=== PATIENT | male | born 1970 | race Caucasian/White ===

== ENCOUNTER 2021-06-27 02:55 | Outpatient (CLI) | payer OTHER, SELFPAY ==
[2021-06-27 08:11] LABS: Bilirubin Negative (Negative); Blood Small (Negative); Clarity Clear (Clear); Glucose Negative (Negative); Ketones Negative (Negative); Leukocyte Esterase Negative (Negative); Nitrite Negative (Negative); Urobilinogen 0.2 EU/dL (Up TO 0.2); pH 6.5 (5-8)
[2021-06-27 08:24] LABS: Bacteria Negative HPF (Negative); C & S Indicated? No; Casts Negative LPF (Negative); Crystals Negative HPF (Negative); Epithelial Cells Rare HPF (Negative); Mucus Negative (Negative); RBC 0-2 HPF (0-2); WBC Negative HPF (0-5)
[2021-06-27 09:33] LABS: ALT 39 U/L (16-63); AST 18 U/L (15-37); Albumin 4.5 g/dL (3.4-5.0); Alkaline Phosphatase 87 U/L (46-116); BUN 11 mg/dL (7-18); Bilirubin, Total 0.6 mg/dL (0.2-1.0); CREATININE 1.2 mg/dL (0.70-1.30); Calcium 9.3 mg/dL (8.5-10.1); Calculated LDL 74 mg/dL (<100); Chloride 102 mmol/L (98-107); Cholesterol 160 mg/dL (<200); Glucose 98 mg/dL (74-106); HDL Cholesterol 54 mg/dL (40-60); Potassium 4.2 mmol/L (3.5-5.1); Sodium 141 mmol/L (136-145); Total Protein 7.6 g/dL (6.4-8.2); Triglyceride 161 mg/dL (<150)
[2021-06-27 18:53] LABS: PSA, Screening 0.6 ng/mL (0.0-3.5)
== END 2021-06-27 02:56 | disposition home or self-care (01) ==
LOC: LBO 02:55
PROVIDERS: Visit Provider Nurse Practitioner Family
DX: E78.5 Hyperlipidemia, unspecified (principal); R39.15 Urgency of urination; Z13.1 Encounter for screening for diabetes mellitus; Z12.5 Encounter for screening for malignant neoplasm of prostate
CPT/HCPCS: 36415; 80053; 80061; 84153; 81003; 81015

== ENCOUNTER 2022-06-15 01:38 | Outpatient (CLI) | payer OTHER, SELFPAY ==
[2022-06-15 09:39] LABS: ALT 52 U/L (16-63); AST 25 U/L (15-37); Albumin 4.3 g/dL (3.4-5.0); Alkaline Phosphatase 79 U/L (46-116); Anion Gap 3.7 mmol/L (3-11); BUN 16 mg/dL (7-18); Bilirubin, Total 0.5 mg/dL (0.2-1.0); CO2 31.3 mmol/L (21.0-32.0); CREATININE 1.3 mg/dL (0.70-1.30); Calcium 9.3 mg/dL (8.5-10.1); Chloride 102 mmol/L (98-107); Estimated GFR 66.51 (mL/min/1.73m2); Glucose 101 mg/dL (74-106); Potassium 4.2 mmol/L (3.5-5.1); Sodium 137 mmol/L (136-145); Total Protein 7.6 g/dL (6.4-8.2)
[2022-06-15 10:01] LABS: Calculated LDL 67 mg/dL (<100); Cholesterol 133 mg/dL (<200); HDL Cholesterol 51 mg/dL (40-60); Triglyceride 77 mg/dL (<150)
[2022-06-18 10:48] LABS: Hepatitis C Ab w Rflx HCV PCR Negative (Negative)
[2022-06-18 11:05] LABS: HIV-1/2 Ag & Ab Screen Negative (Negative)
== END 2022-06-15 01:39 | disposition home or self-care (01) ==
PROVIDERS: PCP Nurse Practitioner Family; Visit Provider Nurse Practitioner Family
DX: E78.5 Hyperlipidemia, unspecified (principal); Z13.1 Encounter for screening for diabetes mellitus; Z11.4 Encounter for screening for human immunodeficiency virus [HIV]; Z11.59 Encounter for screening for other viral diseases; Z79.899 Other long term (current) drug therapy
CPT/HCPCS: 36415; 80053; 80061; 86803; 87389

== ENCOUNTER 2024-07-13 03:12 | Outpatient (CLI) | payer OTHER, SELFPAY ==
[2024-07-13 09:49] LABS: BUN 12 mg/dL (7-18); CREATININE 1.1 mg/dL (0.70-1.30); Calcium 9.4 mg/dL (8.5-10.1); Calculated LDL 90 mg/dL (<100); Chloride 105 mmol/L (98-107); Cholesterol 177 mg/dL (<200); Estimated GFR 80.27 (mL/min/1.73m2); Glucose 105 mg/dL (74-106); HDL Cholesterol 64 mg/dL (>or=40); Potassium 4.2 mmol/L (3.5-5.1); Sodium 144 mmol/L (136-145); Triglyceride 118 mg/dL (<150)
[2024-07-13 18:09] LABS: PSA, Screening 0.6 ng/mL (<=3.5)
== END 2024-07-13 03:13 | disposition home or self-care (01) ==
LOC: LBO 03:12
PROVIDERS: PCP Nurse Practitioner Adult Health; Referring Provider Nurse Practitioner Adult Health; Visit Provider Nurse Practitioner Adult Health
DX: I10 Essential (primary) hypertension (principal); E78.5 Hyperlipidemia, unspecified; F41.9 Anxiety disorder, unspecified; F32.A Depression, unspecified
CPT/HCPCS: 36415; 80048; 80061; 84153